=== PATIENT | male | born 1970 | race Two or more races ===

== ENCOUNTER 2025-01-24 08:30 | Day surgery (SDC) | payer MEDICAID, SELFPAY ==
[2025-01-23 12:34] VITALS: BMI 36.6
[2025-01-24] VITALS (10 sets, daily range): BP systolic 99–113; BP diastolic 51–71; PULSE 38–50; RESP 14–18; TEMP 36.2–36.7; O2SAT 96–99; BMI 36.4
[2025-01-24] MEDS: RINGERS LACTATED 1000 ML 1,000 ML 60 ML IV (11:14)
[2025-01-24] MEDS: MIDAZOLAM INJ 1 MG/ML VIAL 2 ML (ASD USE ONLY) 2 MG IVP (11:15)
[2025-01-24] MEDS: fentaNYL CIT INJ 50 mCg/ML AMP 2ML (ASD USE ONLY) IVP (11:15)
[2025-01-24] MEDS: DiphenhydrAMINE INJ 50 MG/ML VIAL 25 MG IVP (11:15)
--- NOTE | 2025-01-24 11:16 | SUR.OPER ---
1055 AWARE OF HR 47, OKAY TO PROCEED WITH PROCEDURE. 1110 AWARE OF HR OF 38, NO NEW ORDERS RECEIVED.
== END 2025-01-24 12:00 | disposition home or self-care (01) ==
PROVIDERS: PCP Nurse Practitioner Family; Referring Provider Specialist; Visit Provider Specialist
PROC: 0DBE8ZX Excision of Large Intestine, Via Natural or Artificial Opening Endoscopic, Diagnostic (ICD-10-PCS; CPT 45380; principal; 2025-01-24 10:15)
DX: K60.2 Anal fissure, unspecified (principal); K64.2 Third degree hemorrhoids; Z01.810 Encounter for preprocedural cardiovascular examination
CPT/HCPCS: 45378; J1200; J2250; J3010; J7120